=== PATIENT | female | born 1970 | race Caucasian/White ===

== ENCOUNTER 2017-08-30 03:28 | Inpatient (IN) | payer OTHER ==
--- NOTE | 2017-08-29 18:40 | History & Physical Pre-Op ---
General Information and HPI History of Present Illness: This patient is a 46-year-old 2 para 2 with chronic menorrhagia who presents today for planned total abdominal hysterectomy and bilateral salpingectomy. She has failed hormonal therapy and endometrial ablation. She desires to retain her ovaries if they appear grossly normal at surgery. 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 EENTM: Reports: no symptoms. Cardiovascular: Reports: no symptoms. Respiratory: Reports: no symptoms. GI: Reports: no symptoms. Genitourinary: Reports: see HPI. Musculoskeletal: Reports: no symptoms. Skin: Reports: no symptoms. Neurological/Psychological: Reports: no symptoms. Hematologic/Endocrine: Reports: no symptoms. Immunologic/Allergic: Reports: no symptoms. All Other Systems: Reviewed and Negative Exam & Diagnostic Data Last 24 Hrs of Vital Signs/I&O Vital signs stable afebrile Physical Exam: HEENT: Normocephalic atraumatic Chest: Clear to auscultation Cardiovascular: Normal S1, S2 Abdomen: Soft nontender nondistended Pelvic: Deferred to the OR Extremities: No clubbing cyanosis or edema Neurologic: Nonfocal Assessment/Plan Assessment/Plan: Chronic menorrhagia Plan: FRANCESCA-BS As Ranked By This Provider Problem List: 1. Menorrhagia
[~2017-08-30] VITALS: Ht 149.9 cm; Wt 73.9 kg
[~2017-08-30 03:28] MED LIST: BENTYL20 MG PO; MIRENA1 EACH; VALIUM5 M2 PO
[2017-08-30 06:32] LABS: ABSOLUTE BASOPHIL COUNT 0 /CUMM (0.0-0.2); ABSOLUTE EOSINOPHIL COUNT 0.3 /CUMM (0.0-0.7); ABSOLUTE GRANULOCYTE CT 7.8 /CUMM (1.4-6.5); ABSOLUTE LYMPH COUNT 2.9 /CUMM (1.2-3.4); ABSOLUTE MONOCYTE COUNT 0.7 /CUMM (0.10-0.60); BASOPHIL % 0.2 % (0.0-2.0); EOSINOPHIL % 2.2 % (0-5); GRANULOCYTE % 66.5 % (42.2-75.2); HEMATOCRIT 45.5 % (37-47); MEAN CORPUSCULAR HGB 29.9 PG (27.0-31.0); MEAN CORPUSCULAR HGB CONC 33.3 G/DL (33.0-37.0); MEAN CORPUSCULAR VOLUME 89.7 FL (81.0-99.0); MEAN PLATELET VOLUME 7.5 FL (7.4-10.4); PLATELET COUNT 348 /CUMM (130-400); RBC DISTRIBUTION WIDTH 12.9 % (11.5-14.5); RED BLOOD CELL CT 5.07 /CUMM (4.20-5.40); WHITE BLOOD CELL COUNT 11.7 /CUMM (4.8-10.8)
[2017-08-30 12:20] VITALS: BP 136/78
[2017-08-30 18:30] VITALS: BP 110/68
[2017-08-30 20:40] VITALS: BP 128/70
[2017-08-31] VITALS (11 sets, daily range): BP systolic 125–170; BP diastolic 62–90
--- NOTE | 2017-08-31 09:38 | Operative Report ---
Operative/Inv Procedure Report Surgery Date: 08/30/17 Name of Procedure: Total abdominal hysterectomy and bilateral salpingectomy Pre-Operative Diagnosis: Menorrhagia Post-Operative Diagnosis: Same Estimated Blood Loss: 50ml to 100ml Surgeon/Drop Wire Stringer: Krista Spear MD,Dharmesh Wilcox M.D. Anesthesia: general endotracheal tube Operative/Procedure Note Note: The patient was brought to the operating room placed on the OR table in the dorsal supine position. She was given adequate general anesthesia and successfully intubated. She was then given a tabs block by anesthesia and Dr. Pastrana performed bilateral ureteral stent placement. The patient's abdomen was then prepped and draped in usual sterile fashion. Lema catheter was previously placed. A Pfannenstiel skin incision was made with the scalpel and taken down to the layer of the fascia. The fascia was nicked in the midline and extended bilaterally. The underlying rectus muscles are and the peritoneal cavity was entered bluntly. This was extended and a O'Daniel-O'Hammond retractor was placed into the abdomen and the intestines were packed away with moistened laparotomy sponges. The fundus of the uterus was elevated with a single-tooth tenaculum throughout the case. The right round ligament was isolated and tagged the same procedure is repeated on the left. The right utero -ovarian ligament was clamped with a Aman transected and suture ligated. The same procedures. On the left. Bladder flap was taken down sharply with Metzenbaum scissors. The right uterine artery was clamped transected and suture ligated with 0 Polysorb with good hemostasis. Same procedure is repeated on the left with good hemostasis. The cardinal ligaments were sequentially taken left and right with Chester clamps transection and suture ligature of 0 Polysorb. When the vagina was reached it was entered with the electrocautery and the specimen was removed. The vaginal cuff was then oversewn using 0 Polysorb in a running locking fashion. Attention was then paid to the fallopian tubes. The right fallopian tube was elevated and crossclamped with 2 great ducts. Through the tube was then excised free tied and suture ligated with 0 Polysorb. The same procedure is repeated on the left with good hemostasis. The pelvis was then copiously irrigated and all surgical sites were noted to be hemostatic. Shefali coagulant powder was used at the surgical sites. The laparotomy pads and instruments were removed and the rectus muscles were reapproximated with 2 interrupted sutures. The fascia was closed with 0 Polysorb in a running nonlocking fashion. Subcutaneous tissues were irrigated and the skin was closed using caroline. Dry sterile dressing was applied to the wound the vaginal cuff was inspected and noted to be hemostatic. Dry sterile dressing was applied to the wound. The uterine specimen was opened sharply and the previous Mirena IUD was noted to be intact. The patient was then awakened and sent to recovery in good condition. All needle, sponge, and inspected counts were correct and the procedure 2.
--- NOTE | 2017-08-31 09:59 | Operative Report ---
Operative/Inv Procedure Report Surgery Date: 08/30/17 Name of Procedure: cystoscopy: bilateral stent insertion Pre-Operative Diagnosis: metromenorrhagia Post-Operative Diagnosis: same Estimated Blood Loss: scant Surgeon/Mmi Teacher: MD Victoriano, Henrry-urology Anesthesia: general endotracheal tube Drains: 18 fr simpson Specimens: ucx Complications: none Operative/Procedure Note Note: The patient was taken to the operating room and placed on the OR table in supine position. Timeout was performed, with the patient awake, to confirm identify, planned procedures, anesthesia, antibiotics and other pertinent luis daniel-operative information. After adequate anesthesia, and IV antibiotics, the patient was placed in lithotomy Yellow-fin stirrups. She was then draped and prepped in the usual surgical fashion, including a vaginal prep. A 22 Czech cystoscope sheath with a 30 angle lens was inserted into the bladder without significant difficulty. The bladder was thoroughly and systematically examined, and was noted to be free of tumor, free of stone, free of endometriosis. Both ureteral orifices were in their orthotopic positions with clear reflux bilaterally. Under direct visualization the left orifice was intubated with a 5 Czech whistle-tip catheter, which was advanced easily into the left kidney pelvis. The right ureteral orifice was intubated with a second 5 Czech ureteral whistle tip catheter, and advanced into the right renal pelvis without difficulty. For identification purposes the blue marked stent went into the left kidney and the right ureteral stent was marked red. Urine culture was obtained and sent to pathology. The cystoscope was then removed leaving both stents in proper place. An 18 Czech Simpson catheter was inserted draining clear fluid and 10 mL of sterile water was then placed in the balloon. The ends ureteral stents, which protruded externally, were taped to the Simpson catheter in order to secure their position. The individual ureteral stents were then connected to their individual drainage devices. All sponge needle and instrument count were correct at the end of this case. The patient tolerated the procedure well. The patient was then placed in supine position with Venodyne's in place. At this point, Dr.Vander Dodd was able to proceed with the patient's surgery. Findings: normal bladder Discharge Disposition: proceed with dr blanchard CC: Henrry Pastrana MD
--- NOTE | 2017-08-31 11:04 | PN- General Surgery ---
Subjective Subjective: no flatus Review of Systems: same Objective Vital Signs and I&Os Vital Signs Date Time Temp Pulse Resp B/P B/P Pulse O2 O2 Flow FiO2 Mean Ox Delivery Rate 08/31 1022 99.4 78 18 140/70 92 Room Air 08/31 0931 81 20 170/90 97 Nasal 1.0L Cannula 08/31 0820 98.4 70 20 125/70 08/31 0600 98.4 70 20 125/70 92 Room Air 08/31 0446 98.3 69 18 127/75 94 Nasal 2.0L Cannula 08/31 0400 98.3 69 18 127/75 08/31 0201 98.4 79 18 128/73 92 Nasal 2.0L Cannula 08/31 0200 98.4 79 18 128/73 08/30 2130 Nasal 2.0L Cannula 08/30 2040 98.7 63 16 128/70 93 Nasal 2.0L Cannula 08/30 1830 98.2 62 16 110/68 95 Nasal 2.0L Cannula 08/30 1600 94 Nasal 2.0L Cannula 08/30 1231 95 Nasal 2.0L Cannula 08/30 1220 97.6 77 16 136/78 08/30 1220 97.6 77 16 136/78 95 Nasal 2.0L Cannula Intake & Output 08/31 1600 08/31 0800 08/31 0000 08/30 1600 08/30 0800 08/30 0000 Intake Total 1240 605 Output Total 75 850 300 Balance -75 390 305 Intake, IV 1000 125 Intake, Oral 240 480 Output, Urine 75 850 300 Patient 163 lb 163 lb Weight Weight Reported by Patient Reported by Patient Measurement Method Physical Exam: abd: soft, ND; incision c/d/i ext nt Assessment/Plan Assessment/Plan s/p FRANCESCA BS POD1 stble D/C simpson, SCHO[employer] J[employer]OR advance diet increase activity Problem List: 1. Menorrhagia Core Measures Venous Thromboembolism VTE Risk Factors Surgery No Mechanical VTE Prophylaxis d/t N/A MechProphylax Ordered No VTE Pharm Prophylaxis d/t NA PharmProphylax ordered
[2017-09-01 06:56] VITALS: BP 132/80
--- NOTE | 2017-09-01 09:29 | PN- General Surgery ---
Subjective Subjective: POS FLATUS; HUNGRY Review of Systems: NEG Objective Vital Signs and I&Os Vital Signs Date Time Temp Pulse Resp B/P B/P Pulse O2 O2 Flow FiO2 Mean Ox Delivery Rate 09/01 0656 98.5 72 20 132/80 89 08/31 2243 99.5 74 20 132/62 92 Room Air 08/31 1410 98.8 84 18 126/84 92 Room Air 08/31 1022 99.4 78 18 140/70 92 Room Air 08/31 1000 99.4 78 18 140/70 08/31 0931 81 20 170/90 97 Nasal 1.0L Cannula Intake & Output 09/01 1600 09/01 0800 09/01 0000 08/31 1600 08/31 0800 08/31 0000 Intake Total 5242 865 5094 1240 Output Total 700 200 425 850 Balance 697 659 6993 390 Intake, IV 4063 780 2465 1000 Intake, Oral 300 200 720 240 Number 0 Bowel Movements Output, Urine 700 200 425 850 Patient 163 lb Weight Weight Reported by Patient Measurement Method Physical Exam: ABD: SOFT NT INCISION C/D/I EXT: NT Assessment/Plan Assessment/Plan S/P FRANCESCA ADVANCE DIET; IF TOLERATES WELL MAY BE DISCHARGED HOME Problem List: 1. Menorrhagia Core Measures Venous Thromboembolism VTE Risk Factors Surgery No Mechanical VTE Prophylaxis d/t N/A MechProphylax Ordered No VTE Pharm Prophylaxis d/t NA PharmProphylax ordered
[2017-09-01] MEDS ORDERED: PERCOCET 5-3251 EACH PO (09:31)
[2017-09-01] MEDS ORDERED: DOCUSATE SODIU100 M3 PO (09:31)
[2017-09-01] MEDS ORDERED: IBUPROFEN800 M1 PO (09:31)
[2017-09-01] MEDS ORDERED: NICOTINE PATCH1 EAC2 TOP (09:49)
[2017-09-01 14:15] VITALS: BP 100/60
[2017-09-01 15:51] VITALS: BP 128/70
== END 2017-09-01 16:08 | DRG 513 ==
LOC: 2NB 03:28 → SDA 03:28 → ENRESERV 10:22 → ENTRNSPT 11:21 → EDTRNSPT 11:37 → EDTRNSPTSTS 11:37 → 2NB 11:40 → CMPTRNSPT 11:54 → ENPENDDIS 09-01 09:49 → 2NB 09-01 16:08
PROVIDERS: Obstetrics & Gynecology
DX: N92.0 Excessive and frequent menstruation with regular cycle (principal); Z98.51 Tubal ligation status; Z90.49 Acquired absence of other specified parts of digestive tract
CPT/HCPCS: 2NBSP; 36415; 87086; 88307; J0131; J0694; J1170; J1200; J1650; J2405; J3490